=== PATIENT | female | born 1945 | race Two or more races ===

== ENCOUNTER 2016-09-04 17:04 | Emergency (ER) | payer OTHER, MEDICAID ==
[~2016-09-04] VITALS: Ht 162.6 cm; Wt 83.5 kg
[~2016-09-04 17:04] MED LIST: AMLO10 PO; CIPR500T4 PO; GABA300C3 PO; LANTINJ SQ; METF500 PO; PROT40TA PO
[2016-09-04 17:08] VITALS: BP 170/76; PULSE 76; RESP 18; TEMP 97.9; O2SAT 99
[2016-09-04] MEDS ORDERED: SODIUM CHLORIDE 0.9% FLUSH 10 ML FLUSH IVF PRN (17:15)
--- NOTE | 2016-09-04 17:17 | PD ---
HPI Chief Complaint: Cold / Flu Symptoms Time Seen by Provider: 17:11 Travel History International Travel<30 days: No Contact w/Intl Traveler<30days: No Traveled to known affect area: No History of Present Illness HPI Patient 71-year-old female presents emergency department with cough and congestion for the past week. . She endorses a nonproductive cough. She states symptoms been gradually worsening shortness of breath started this morning. Patient denies any fever. States she is diabetic. Denies any chest pain abdominal pain nausea vomiting diarrhea constipation. Denies any foreign travel. PFSH Past Medical History Asthma: Yes Cancer: No Diabetes: Yes Diminished Hearing: No Endocrine: Yes Immune Disorder: No Psychiatric: No Thyroid Disease: No Past Surgical History Ear Surgery: Yes (R EYE CAT) Eye Surgery: Yes (CATARACTS BOTH EYES ) Social History Alcohol Use: No Tobacco Use: No Substance Use: No Allergies-Medications (Allergen,Severity, Reaction): Coded Allergies: No Known Allergies (Unverified , 06/25/15) Reported Meds & Prescriptions Reported Meds & Active Scripts Active Tessalon Perles (Benzonatate) 100 Mg Cap 100 Mg PO TID PRN Proair Hfa 8.5 GM Inh (Albuterol Sulfate) 90 Mcg/Act Aer 1 Puff INH Q4H PRN 108 mcg/actuation Levofloxacin 750 Mg Tablet 750 Mg PO DAILY 10 Days Reported Tessalon Perles (Benzonatate) 100 Mg Cap 100 Mg PO TID PRN Imodium A-D (Loperamide HCl) 2 Mg Capsule 1-2 Tab PO Q6H PRN Gabapentin 400 Mg Cap 400 Cap PO TID Metformin (Metformin HCl) 1,000 Mg Tab 1,000 Mg PO BIDPC With meals Losartan (Losartan Potassium) 100 Mg Tab 150 Mg PO DAILY Lantus Solostar Pen Inj (Insulin Glargine) 300 Unit/3 Ml Pen 35 Units SQ DAILY Hydrochlorothiazide 25 Mg Tab 25 Mg PO DAILY Amlodipine (Amlodipine Besylate) 10 Mg Tab 10 Mg PO DAILY Nystop Topical (Nystatin Topical) 100,000 Unit/Gm Powd 1 Applic TOPICAL TID B Complex (B-Complex Vitamins) 1 Cap 1 Cap PO DAILY Review of Systems Except as stated in HPI: all other systems reviewed are Neg Physical Exam Narrative GENERAL: Well-developed well-nourished nontoxic, exhibiting dry cough. SKIN: Focused skin assessment warm/dry. HEAD: Atraumatic. Normocephalic. EYES: Pupils equal and round. No scleral icterus. No injection or drainage. ENT: No nasal bleeding or discharge. Mucous membranes pink and moist. NECK: Trachea midline. No JVD. CARDIOVASCULAR: Regular rate and rhythm. No murmur appreciated. RESPIRATORY: No accessory muscle use. Faint rales in the right base. Breath sounds equal bilaterally. Minimally increased work of breathing. GASTROINTESTINAL: Abdomen soft, non-tender, nondistended. Hepatic and splenic margins not palpable. MUSCULOSKELETAL: No obvious deformities. No clubbing. No cyanosis. No edema. NEUROLOGICAL: Awake and alert. No obvious cranial nerve deficits. Motor grossly within normal limits. Normal speech. PSYCHIATRIC: Appropriate mood and affect; insight and judgment normal. Data Data Last Documented VS Vital Signs Date Time Temp Pulse Resp B/P Pulse Ox O2 Delivery O2 Flow Rate FiO2 09/04/16 19:39 74 18 97 09/04/16 19:38 170/72 Room Air 09/04/16 17:08 97.9 Orders Electrocardiogram (09/04/16 17:15) B-Type Natriuretic Peptide (09/04/16 17:15) Complete Blood Count With Diff (09/04/16 17:15) Comprehensive Metabolic Panel (09/04/16 17:15) Magnesium (Mg) (09/04/16 17:15) Prothrombin Time / Inr (Pt) (09/04/16 17:15) Act Partial Throm Time (Ptt) (09/04/16 17:15) Troponin I (09/04/16 17:15) Ecg Monitoring (09/04/16 17:15) Iv Access Insert/Monitor (09/04/16 17:15) Oximetry (09/04/16 17:15) Oxygen Administration (09/04/16 17:15) Sodium Chloride 0.9% Flush (Ns Flush) (09/04/16 17:15) Chest, Pa & Lat (09/04/16 17:15) Benzonatate (Tessalon) (09/04/16 18:00) Guaifen-Dm 200-20 Mg/10 Ml Liq (Robituss (09/04/16 18:00) Lactic Acid (09/04/16 18:01) Blood Culture (09/04/16 18:01) Levofloxacin 750 Mg Premix Inj (Levaquin (09/04/16 19:00) Levofloxacin (Levaquin) (09/04/16 19:30) Labs Laboratory Tests Test 09/04/16 09/04/16 17:40 18:25 White Blood Count 16.0 TH/MM3 Red Blood Count 3.75 MIL/MM3 Hemoglobin 9.0 GM/DL Hematocrit 27.9 % Mean Corpuscular Volume 74.4 FL Mean Corpuscular Hemoglobin 24.1 PG Mean Corpuscular Hemoglobin 32.4 % Concent Red Cell Distribution Width 14.9 % Platelet Count 586 TH/MM3 Mean Platelet Volume 8.3 FL Neutrophils (%) (Auto) 78.5 % Lymphocytes (%) (Auto) 14.2 % Monocytes (%) (Auto) 5.3 % Eosinophils (%) (Auto) 1.8 % Basophils (%) (Auto) 0.2 % Neutrophils # (Auto) 12.6 TH/MM3 Lymphocytes # (Auto) 2.3 TH/MM3 Monocytes # (Auto) 0.8 TH/MM3 Eosinophils # (Auto) 0.3 TH/MM3 Basophils # (Auto) 0.0 TH/MM3 CBC Comment AUTO DIFF Differential Comment AUTO DIFF CONFIRMED Prothrombin Time 10.7 SEC Prothromb Time International 1.0 RATIO Ratio Activated Partial 32.5 SEC Thromboplast Time Sodium Level 136 MEQ/L Potassium Level 4.2 MEQ/L Chloride Level 104 MEQ/L Carbon Dioxide Level 23.9 MEQ/L Anion Gap 8 MEQ/L Blood Urea Nitrogen 18 MG/DL Creatinine 1.20 MG/DL Estimat Glomerular Filtration 44 ML/MIN Rate Random Glucose 230 MG/DL Calcium Level 8.8 MG/DL Magnesium Level 1.6 MG/DL Total Bilirubin 0.4 MG/DL Aspartate Amino Transf 11 U/L (AST/SGOT) Alanine Aminotransferase 25 U/L (ALT/SGPT) Alkaline Phosphatase 81 U/L Troponin I LESS THAN 0.02 NG/ML B-Type Natriuretic Peptide 75 PG/ML Total Protein 7.5 GM/DL Albumin 3.0 GM/DL Lactic Acid Level 0.8 mmol/L MDM Medical Decision Making Medical Screen Exam Complete: Yes Emergency Medical Condition: Yes Interpretation(s) EKG shows atrial fibrillation rate controlled. No obvious signs of ischemia. This an abnormal EKG. Differential Diagnosis Atrial fibrillation, pneumonia, sepsis, CHF seems unlikely, ACS seems unlikely. Narrative Course Patient 71-year-old female presents emergency department for evaluation of cough congestion and some mild shortness of breath the latter of which just started today. Patient does have evidence of pneumonia on chest x-ray. She does have an elevated white blood cell count of 16,000. No other Sirs criteria and therefore not sepsis. Curb 65 score is low risk (1). The patient also has an EKG which shows atrial fibrillation which appears to be new onset for her. I discussed the findings with her and while she does have fairly poor understanding of the diagnosis she is able to comprehend that atrial fibrillation with a history of diabetes and her age signifies significant risk of stroke. I had recommended that she be admitted to the hospital for treatment of pneumonia and ongoing treatment for atrial fibrillation. There is no evidence of congestive heart failure. I discussed with her that symptomatically a don't think her symptoms are consistent with ACS but cannot completely exclude coronary artery disease.. INR is 1. She states she would rather go home. She states she has an appointment in 3 weeks with a primary care physician. I stated that if she went home she needs to follow up with her primary care physician within the next few days. She states she will call to get an earlier appointment. I recommend that she continue taking a full dose aspirin at home until she follows up with her primary care physician. Given her limited understanding of her disease process and do not believe that I can adequate counselor her to start Coumadin or anticoagulation at this time. However I do believe that she is able to make informed decision that she does understand the consequences not being on blood thinners for the long-term. I again offered her admission to the hospital and she again declined. She will be discharged on Levaquin will be provided an inhaler. Discussed she is in guarded to return to the emergency department any time for reevaluation. Discussed return to ED criteria for her atrial fibrillation as well as her pneumonia. Diagnosis Primary Impression: PNA (pneumonia) Qualified Code: J18.1 - Pneumonia of right lower lobe due to infectious organism Additional Impression: Atrial fibrillation Qualified Code: I48.91 - Atrial fibrillation, unspecified type Additional Instructions: Call your regular physician as soon as possible to arrange follow-up appointment. You need to discuss anticoagulation because you are at increased risk of stroke because of an abnormal heart rhythm called atrial fibrillation. Take your antibiotics as prescribed until they are all gone. If he start running high fevers or have persistent shortness of breath return to the emergency department immediately. Med/Other Pt SpecificInfo: Prescription(s) given Scripts Benzonatate (Tessalon Perles)100 Mg [id number] Mg PO TID PRN (COUGH) #30 CAP Ref 0 Prov:Brayan Brooks MD 09/04/16 Albuterol 8.5 GM Inh (Proair Hfa 8.5 GM Inh)90 Mcg/Act Aer1 Puff INH Q4H PRN ( SHORTNESS OF BREATH) #1 INHALER Ref 0 108 mcg/actuation Prov:Brayan Brooks MD 09/04/16 Levofloxacin 750 Mg [id number] Mg PO DAILY 10 Days Ref 0 Prov:Brayan Brooks MD 09/04/16 Disposition: 01 DISCHARGE HOME Condition: Stable Brayan Brooks MD September 04, 2016 17:17
[2016-09-04 17:50] VITALS: O2SAT 99
[2016-09-04 17:51] LABS: AUTOMATED NEUTROPHIL # 12.6 TH/MM3 (1.8-7.7); BASOPHIL % 0.2 % (0.0-2.0); EOSINOPHIL # 0.3 TH/MM3 (0-0.4); EOSINOPHIL % 1.8 % (0.0-4.0); HEMATOCRIT 27.9 % (35.0-46.0); LYMPH % 14.2 % (9.0-44.0); LYMPHOCYTE # 2.3 TH/MM3 (1.0-4.8); MEAN CELL VOLUME 74.4 FL (80.0-100.0); MEAN CORPUSCULAR HEMOGLOBIN 24.1 PG (27.0-34.0); MEAN CORPUSCULAR HGB CONC 32.4 % (32.0-36.0); MONO % 5.3 % (0.0-8.0); NEUT % 78.5 % (16.0-70.0); PLATELET COUNT 586 TH/MM3 (150-450); RED BLOOD COUNT 3.75 MIL/MM3 (4.00-5.30); RED CELL DISTRIBUTION WIDTH 14.9 % (11.6-17.2)
[2016-09-04] MEDS ORDERED: AMLO10TA2 PO (17:52)
[2016-09-04] MEDS ORDERED: HYDR25TA5 PO (17:52)
[2016-09-04] MEDS ORDERED: LOSA100T PO (17:52)
[2016-09-04] MEDS ORDERED: LOPE-1 PO (17:52)
[2016-09-04] MEDS ORDERED: LANTINJ SQ (17:52)
[2016-09-04] MEDS ORDERED: NYST10007 TOPICAL (17:52)
[2016-09-04] MEDS ORDERED: VITACAP7 PO (17:52)
[2016-09-04] MEDS ORDERED: BENZ100 PO ×2 (17:52→19:21)
[2016-09-04] MEDS ORDERED: GABA400C5 PO (17:52)
[2016-09-04] MEDS ORDERED: METF1000 PO (17:52)
[2016-09-04 17:53] LABS: HEMO FLAGS AUTO DIFF
--- NOTE | 2016-09-04 17:58 | RADHPO ---
EXAM DATE/TIME: 09/04/2016 17:25 [facility] COMPARISON: No previous studies available for comparison. INDICATIONS : Cough, short of breath, chest pain with cough left lower chest area MEDICAL HISTORY : None. SURGICAL HISTORY : None. ENCOUNTER: Initial ACUITY: 2 weeks PAIN SCORE: 5/10 LOCATION: Bilateral chest FINDINGS: There are consolidative changes present in the right base. The left lung is clear. Heart and pulmon rosa vascularity are normal. Portion of bony skeleton visualized is unremarkable. CONCLUSION: Right lower lobe consolidation suspicious for an inflammatory process. Vaibhav Dumont MD FACR on September 04, 2016 at 17:51 Board Certified Radiologist. This report was verified electronically.
[2016-09-04 18:00] LABS: CHLORIDE 104 MEQ/L (98-107); POTASSIUM 4.2 MEQ/L (3.5-5.1); SODIUM (NA) 136 MEQ/L (136-145)
[2016-09-04] MEDS ORDERED: BENZONATATE 100 MG CAP PO ONE (18:00)
[2016-09-04] MEDS ORDERED: guaiFENesin/DEXTROMETHORPHAN 200 MG/20 MG/10 ML CUP PO ONE (18:00)
[2016-09-04 18:05] LABS: ANION GAP 8 MEQ/L (5-15); BICARBONATE 23.9 MEQ/L (21.0-32.0); BLOOD UREA NITROGEN 18 MG/DL (7-18); MAGNESIUM 1.6 MG/DL (1.5-2.5)
[2016-09-04 18:06] LABS: APTT (PATIENT) 32.5 SEC (24.3-30.1); PROTHROMBIN TIME - PATIENT 10.7 SEC (9.8-11.6)
[2016-09-04 18:08] LABS: ALT (GPT) 25 U/L (10-53); AST (GOT) 11 U/L (15-37); GLOMERULAR FILTRATION RATE 44 ML/MIN (>89)
[2016-09-04 18:10] LABS: TOTAL BILIRUBIN ADULT 0.4 MG/DL (0.2-1.0)
[2016-09-04 18:11] LABS: ALKALINE PHOSPHATASE 81 U/L (45-117)
[2016-09-04 18:17] LABS: SCAN/DIFF AUTO DIFF CONFIRMED
[2016-09-04] MEDS ORDERED: LEVOFLOXACIN 750 MG PREMIX INJ 150 ML IV ONE (19:00)
[2016-09-04] MEDS ORDERED: ALBUAER3 INH (19:21)
[2016-09-04] MEDS ORDERED: LEVO750T3 PO (19:21)
[2016-09-04] MEDS ORDERED: LEVOFLOXACIN 750 MG TAB PO ONE (19:30)
[2016-09-04 19:38] VITALS: BP 170/72; PULSE 74; RESP 18; O2SAT 98
--- NOTE | 2016-09-05 14:58 | EKG ---
Date Performed: 09/04/2016 Time Performed: 17:40:12 PTAGE: 71 years EKG: Sinus rhythm with sinus arrythmia and premature atrial Contractions. Nonspecific ST-T wave change When compared t o previous tracing, axis slightly less leftward. The premature atrial contractions and sinus arrythmi a are new. The T wave changes anterolaterally slightly more prominant. Abnormal ECG PREVIOUS TRACING : 08/24/2015 09.55 DOCTOR: Oz Peralta Interpretating Date/Time 09/05/2016 14:56:47
== END 2016-09-04 19:43 | disposition home or self-care (01) ==
LOC: PHED 17:04
DX: J18.1 Lobar pneumonia, unspecified organism (principal); I48.91 Unspecified atrial fibrillation; R94.31 Abnormal electrocardiogram [ECG] [EKG]
CPT/HCPCS: 71020; 80053; 83605; 83735; 83880; 84484; 85025; 85610; 85730; 87040; 93005; 99285